=== PATIENT | female | born 1980 | race Caucasian/White ===

== ENCOUNTER → 2020-01-09 18:28 | Outpatient (CLI) | payer MEDICAID | END | disposition home or self-care (01) | LOC: D.LABREF 18:28 | PROVIDERS: ATTEND Orthopaedic Surgery | DX: M17.12 Unilateral primary osteoarthritis, left knee (principal) ==

== ENCOUNTER → 2020-03-31 14:47 | Outpatient (CLI) | payer BC | END | disposition home or self-care (01) | LOC: D.LDO 14:47 | PROVIDERS: ATTEND Obstetrics & Gynecology | DX: O26.899 Other specified pregnancy related conditions, unspecified trimester (principal); Z3A.00 Weeks of gestation of pregnancy not specified ==

== ENCOUNTER 2020-04-03 15:08 | Outpatient (CLI) | payer BC | END 2020-04-03 17:05 | LOC: D.LDO 15:08 | PROVIDERS: ATTEND Obstetrics & Gynecology | DX: O26.899 Other specified pregnancy related conditions, unspecified trimester (principal); Z3A.00 Weeks of gestation of pregnancy not specified ==